=== PATIENT | male | born 1985 | race Two or more races ===

== ENCOUNTER 2017-12-25 10:22 | Emergency (ER) | payer BC ==
[2017-12-25 10:31] VITALS: BMI 29.4
[2017-12-25 12:14] LABS: BASO % 0.5 % (0-2.0); EOS % 3.8 % (0-4.5); HEMATOCRIT 46.4 % (35.4-49); HEMOGLOBIN 15.4 GM/dL (11.7-16.9); LYMPH % 29.6 % (8-40); MCH 28.1 pg (25.7-33.7); MCHC 33.2 g/dl (32.0-35.9); MEAN CELL VOLUME 84.8 fl (80-96); MEAN PLT VOLUME 8.4 fl (7.5-11.1); MONO % 5.8 % (3.8-10.2); NEUT % 60.3 % (42.8-82.8); PLATELET COUNT 243 K/MM3 (134-434); RBC 5.47 M/mm3 (4.00-5.60); RDW 14.1 % (11.9-15.9); WHITE BLOOD COUNT 7.6 K/mm3 (4.0-10.0)
--- NOTE | 2017-12-25 12:25 | PDOC ---
History of Present Illness - General Chief Complaint: Chest Pain Stated Complaint: CHEST PAIN Time Seen by Provider: 12/25/17 10:40 History Source: Patient Exam Limitations: No Limitations - History of Present Illness Initial Comments: 12/25/17 10:48 32-year-old male with no past medical history presents to the ED with complaints of episodic left-sided chest pain which he describes a pressure after running upstairs then causing him mild shortness of breath followed by right arm pain. Patient states the right arm pain and was woman aching sensation to his bicep and disappeared within seconds. Patient states the chest pain lasted approximately 2-3 minutes and disappeared without intervention. Patient currently denies any symptoms but decided come to the ER for further evaluation. Patient denies previous chest pain shortness of breath, leg swelling , recent surgery, or history of clotting disorders. Patient does state returned from [place] 2 weeks ago. Presenting Symptoms: Chest Pain, Short of Breath Severity/Quality: reports: moderate, pressure Location: reports: substernal Chest Pain Radiation: reports: arms (right arm) Activities at Onset: reports: exertion Prior Chest Pain/Cardiac Workup: reports: No prior chest pain Nitro Today/Relief: Yes: no nitro taken today Aspirin Received prior to arrival (Core Measure): Yes: no aspirin today Associated Symptoms: Yes: Denies symptoms Past History - Travel Traveled outside of the country in the last 30 days: No - Past Medical History Allergies/Adverse Reactions: Allergies Allergy/AdvReac Type Severity Reaction Status Date / Time No Known Allergies Allergy Verified 12/25/17 10:26 Home Medications: Ambulatory Orders NK [No Known Home Medication] 12/25/17 COPD: No Hypercholesterolemia: Yes - Suicide/Smoking/Psychosocial Hx Smoking History: Never smoked Patient Lives Alone: No Review of Systems - Review of Systems Able to Perform ROS?: No Constitutional: No: Symptoms Reported HEENTM: No: Symptoms Reported Respiratory: Yes: SOB with Exertion Cardiac (ROS): Yes: Chest Pain ABD/GI: No: Symptoms Reported : No: Symptoms Reported Musculoskeletal: Yes: Muscle Pain Integumentary: No: Symptoms Reported Neurological: No: Symptoms reported Endocrine: No: Symptoms Reported Hematologic/Lymphatic: No: Symptoms Reported *Physical Exam - Vital Signs Last Vital Signs Temp Pulse Resp BP Pulse Ox 98.0 F 77 18 115/68 98 12/25/17 14:28 12/25/17 14:28 12/25/17 14:28 12/25/17 14:28 12/25/17 14:28 - Physical Exam General Appearance: Yes: Nourished, Appropriately Dressed. No: Apparent Distress HEENT: positive: EOMI, Pharynx Normal. negative: Pale Conjunctivae Neck: positive: Normal Thyroid, Supple Respiratory/Chest: positive: Lungs Clear, Normal Breath Sounds. negative: Chest Tender, Respiratory Distress, Accessory Muscle Use Cardiovascular: positive: Regular Rhythm, Regular Rate. negative: Murmur Gastrointestinal/Abdominal: positive: Soft. negative: Tenderness Extremity: positive: Normal Capillary Refill. negative: Pedal Edema, Calf Tenderness Integumentary: positive: Normal Color, Warm, Moist Neurologic: positive: Motor Strength 5/5 (ambulatory) Heart Score/ECG Review - History History: Slightly suspicious - Electrocardiogram EKG: Normal - Age Age: </= 45 - Risk Factors Based on the list above the patient has:: No risk factors known - Troponin Troponin: </= normal limit - Score Heart Score - Total: 0 - ECG Intrepretation Rhythm: Regular Rhythm (rate 59. Sinus bradycardia. Intervals are regular. No ST depression or elevation) ED Treatment Course - LABORATORY CBC & Chemistry Diagram: 12/25/17 12:04 12/25/17 12:04 - ADDITIONAL ORDERS Additional order review: 12/25/17 12:04 RBC 5.47 MCV 84.8 MCHC 33.2 RDW 14.1 MPV 8.4 Neutrophils % 60.3 Lymphocytes % 29.6 Monocytes % 5.8 Eosinophils % 3.8 Basophils % 0.5 - RADIOLOGY Radiology Studies Ordered: Category Date Time Status CHEST X-RAY PORTABLE* [RAD] Stat Radiology 12/25/17 11:35 Completed Medical Decision Making - Medical Decision Making 12/25/17 10:44 patient here with episodic left-sided chest pain accompanied with mild shortness of breath and right arm pain. Patient states symptoms resolved within minutes and has no complaints presently. Patient is PERC -. 12/25/17 13:04 Chest x-ray negative. Patient remains asymptomatic. Laboratory Tests 12/25/17 12/25/17 12:04 12:04 WBC 7.6 Hgb 15.4 Hct 46.4 Plt Count 243 Sodium 141 Potassium 4.2 Chloride 107 Carbon Dioxide 27 Anion Gap 7 L BUN 11 Creatinine 1.0 Random Glucose 92 Calcium 8.6 Total Bilirubin 0.3 AST 22 ALT 42 Alkaline Phosphatase 90 Creatine Kinase 226 Troponin I < 0.02 Total Protein 6.9 Albumin 3.8 12/25/17 14:11 Patient remains asymptomatic. Patient be discharged home *DC/Admit/Observation/Transfer Diagnosis at time of Disposition: Atypical chest pain - Discharge Dispostion Disposition: HOME Condition at time of disposition: Good - Referrals Referrals: Panfilo Day MD [Primary Care Provider] - - Patient Instructions Printed Discharge Instructions: DI for Atypical Chest Pain Additional Instructions: At this time your blood work imaging and EKG were negative for anything concerning. I do recommend you follow up with primary care physician as needed. Otherwise return to ED if your symptoms worsen or reoccur. - Post Discharge Activity Forms/Work/School Notes: Back to Work
[2017-12-25 12:46] LABS: ALBUMIN 3.8 g/dl (3.4-5.0); ALK PHOS 90 U/L (45-117); ANION GAP 7 (8-16); BILIRUBIN,TOTAL 0.3 mg/dL (0.2-1.0); BLOOD UREA NITROGEN 11 mg/dL (7-18); CALCIUM 8.6 mg/dL (8.5-10.1); CHLORIDE 107 mmol/L (98-107); CO2 27 mmol/L (21-32); GLUCOSE,RANDOM 92 mg/dL (74-106); POTASSIUM 4.2 mmol/L (3.5-5.1); SGOT/AST 22 U/L (15-37); SGPT/ALT 42 U/L (12-78); SODIUM 141 mmol/L (136-145); TOT PROT 6.9 g/dl (6.4-8.2)
[2017-12-25 14:29] VITALS: BP 115/68; PULSE 77; TEMP 98
--- NOTE | 2017-12-25 17:09 | EKG ---
Test Reason : Blood Pressure : / mmHG Vent. Rate : 059 BPM Atrial Rate : 059 BPM P-R Int : 118 ms QRS Dur : 092 ms QT Int : 390 ms P-R-T Axes : 013 051 041 degrees QTc Int : 386 ms SINUS BRADYCARDIA OTHERWISE NORMAL ECG NO PREVIOUS ECGS AVAILABLE Confirmed by MD CHELSEY, LARRY ([id number]) on 12/25/2017 5:08:41 PM Referred By: Confirmed By:LARRY BARBOSA MD
== END 2017-12-25 14:29 | disposition home or self-care (01) ==
LOC: JER 10:22
DX: R07.89 Other chest pain (principal)
CPT/HCPCS: 36415; 71045-TC-FY; 80053; 82550; 82553; 84484; 85025; 93005; 93010; 99285-25

== ENCOUNTER 2022-07-09 12:57 | Emergency (ER) | payer BC, OTHER ==
[2022-07-09 13:13] VITALS: BP 104/69; PULSE 78; RESP 18; TEMP 98.2; BMI 26.5
== END 2022-07-09 14:05 | disposition home or self-care (01) ==
LOC: JERFT 12:57
PROC: 0W983ZZ Drainage of Chest Wall, Percutaneous Approach (ICD-10-PCS; principal; 2022-07-09)
DX: L02.213 Cutaneous abscess of chest wall (principal)
CPT/HCPCS: 99283-25